=== PATIENT | male | born 1975 ===

== ENCOUNTER 2017-01-31 14:25 | Emergency (ER) | payer MEDICAID, OTHER ==
[2017-01-31 14:28] VITALS: O2SAT 99
[2017-01-31] MEDS ORDERED: Sodium Chloride 0.9% 1,000 ML IV STA ×2 (15:11→15:35)
--- NOTE | 2017-01-31 15:30 | ED PDOC ---
HPI: General Adult Time Seen by Provider: 01/31/17 14:52 Chief Complaint (Nursing): Male Genitourinary Chief Complaint (Provider): abd pain History Per: Patient History/Exam Limitations: no limitations Additional Complaint(s): 41 yo M in ED for eval of left flank pain radiating to back with some difficulty in urinating x 3-4days no nausea vomiting fever or chills. denies heamtuira dneies penile d.c with hx of STI. denies sick contacts. Past Medical History Reviewed: Historical Data, Nursing Documentation, Vital Signs Vital Signs: Last Vital Signs Temp 98 F 01/31/17 14:26 Pulse 92 H 01/31/17 14:26 Resp 20 01/31/17 14:26 BP 120/80 01/31/17 14:26 Pulse Ox 99 01/31/17 15:35 - Medical History PMH: HTN - Surgical History Surgical History: Appendectomy - Family History Family History: States: No Known Family Hx - Home Medications Home Medications: Ambulatory Orders Medication Instructions Recorded Ciprofloxacin [Cipro] 250 mg PO BID #14 tab 01/31/17 Ketorolac Tromethamine [Toradol] 10 mg PO TID #20 cap 01/31/17 Tamsulosin HCl [Flomax] 0.4 mg PO DAILY #12 cap.er.24h 01/31/17 - Allergies Allergies/Adverse Reactions: Allergies Allergy/AdvReac Type Severity Reaction Status Date / Time Penicillins Allergy Mild RASH Verified 01/31/17 14:26 Review of Systems ROS Statement: Except As Marked, All Systems Reviewed And Found Negative Gastrointestinal: Positive for: Abdominal Pain Physical Exam - Reviewed Nursing Documentation Reviewed: Yes Vital Signs Reviewed: Yes - Physical Exam Appears: Positive for: Well, Non-toxic, No Acute Distress Skin: Positive for: Normal Color, Warm, DRY Neck: Positive for: Normal, Painless ROM Cardiovascular/Chest: Positive for: Regular Rate, Rhythm Respiratory: Positive for: CNT, Normal Breath Sounds Gastrointestinal/Abdominal: Positive for: Bowel Sounds, Soft, Tenderness (left sided abd: tenderness to left sided abd and flank area. no bruising noted. ) Back: Positive for: Normal Inspection Extremity: Positive for: Normal ROM Neurologic/Psych: Positive for: Alert, Oriented - Laboratory Results Result Diagrams: 01/31/17 15:30 01/31/17 15:30 - ECG O2 Sat by Pulse Oximetry: 99 - Progress ED Course And Treament: pt will get CT scan to r/o renal stone. given torodol IV and NS fluids. Medical Decision Making Medical Decision Making: Pt with(+) renal calculi pt received NS and torodol for pain and hydration pt more comfortable now after fluids. Pt will be d.c with flomax, cipro, torodol for pain and advised to f.u with urologist. pt understands and agrees with plan. Disposition - Clinical Impression Clinical Impression: Renal stones - Patient ED Disposition Is Patient to be Admitted: No Counseled Patient/Family Regarding: Studies Performed, Diagnosis, Need For Followup, Rx Given - Disposition Referrals: Festus Bonilla Jr., MD [Staff Provider] - [facility] [Outside] Former[facility] [Outside] Disposition: Routine/Home Disposition Time: 16:24 Condition: IMPROVED Prescriptions: Ciprofloxacin [Cipro] 250 mg PO BID #14 tab Ketorolac Tromethamine [Toradol] 10 mg PO TID #20 cap Tamsulosin HCl [Flomax] 0.4 mg PO DAILY #12 cap.er.24h Instructions: Kidney Stones (GEN) Print Language: PALAUAN
[2017-01-31 15:50] LABS: BASO % 0.5 % (0.0-2.0); EOS # 0.1 K/uL (0.0-0.7); EOS % 0.9 % (0.0-4.0); LYMPH # 2.6 K/uL (1.0-4.3); LYMPH % 36.8 % (20.0-40.0); MEAN CELL VOLUME 92.1 fl (80.0-94.0); MEAN CORPUSCULAR HEMOGLOBIN 30.7 pg (27.0-31.0); MEAN CORPUSCULAR HGB CONC 33.3 g/dL (33.0-37.0); MEAN PLATELET VOLUME 10.2 fl (7.2-11.7); MONO # 0.6 K/uL (0.0-0.8); MONO % 8.5 % (0.0-10.0); NEUT # 3.7 K/uL (1.8-7.0); NEUT % 53.3 % (50.0-75.0); RED CELL DISTRIBUTION WIDTH 13.1 % (11.5-14.5)
[2017-01-31 15:54] LABS: ALB/GLOB RATIO 1.5 (1.0-2.1); ALKALINE PHOSPHATASE 73 U/L (38-126); ALT/SGPT 44 U/L (21-72); AST/SGOT 37 U/L (17-59); BLOOD UREA NITROGEN 21 mg/dl (9-20); CALCIUM 10.3 mg/dL (8.4-10.2); CARBON DIOXIDE 21 mmol/L (22-30); CHLORIDE 105 mmol/L (98-107); GFR AFRICAN-AMERICAN > 60; GLUCOSE,RANDOM 114 mg/dL (75-110); SODIUM 143 mmol/l (132-148); TOTAL PROTEIN 7.7 G/DL (6.3-8.2)
--- NOTE | 2017-01-31 16:16 | CT ---
PROCEDURE: CT Abdomen and Pelvis without Oral or IV contrast. HISTORY: left flank pain COMPARISON: None available. TECHNIQUE: Contiguous axial images of the abdomen and pelvis. No oral or IV contrast administered. Coronal and Sagittal reformats generated and reviewed. Radiation dose: Total exam DLP = 559.08 mGy-cm. This CT exam was performed using one or more of the following dose reduction techniques: Automated exposure control, adjustment of the mA and/or kV according to patient size, and/or use of iterative reconstruction technique. FINDINGS: There is limited evaluation of the solid organs without the administration of IV contrast. LOWER THORAX: No visible consolidation, pleural effusion, or pneumothorax. LIVER: Unremarkable unenhanced appearance. GALLBLADDER AND BILE DUCTS: Unremarkable unenhanced appearance. PANCREAS: Unremarkable unenhanced appearance. SPLEEN: Unremarkable unenhanced appearance. ADRENALS: Unremarkable unenhanced appearance. KIDNEYS AND URETERS: 3 mm calculus at the distal left ureter near the UVJ. Proximal hydroureter nephrosis. Additional 2 mm and 1 mm calculi within the left renal pelvis. No obstructing calculus or hydronephrosis on the right. BLADDER: The urinary bladder appears unremarkable. REPRODUCTIVE: Uterus is present. APPENDIX: The appendix is not identified. No secondary signs of acute appendicitis. BOWEL: The stomach is nondistended. Lack of oral contrast limits evaluation for bowel pathology. The bowel loops appear within normal limits of caliber without evidence of intestinal obstruction. PERITONEUM: No significant free fluid. No definite free air. LYMPH NODES: No bulky lymphadenopathy identified. VASCULATURE: No aortic aneurysm. BONES: No acute osseous abnormality is detected. OTHER FINDINGS: None. IMPRESSION: 3 mm calculus at the distal left ureter near the UVJ with proximal hydroureteronephrosis. Additional 2 mm and 1 mm calculi within the left renal pelvis. No obstructing calculus or hydronephrosis on the right.
[2017-01-31 17:30] VITALS: BP 126/68; PULSE 74; RESP 15; TEMP 98.8
== END 2017-01-31 17:47 | disposition home or self-care (01) ==
LOC: H.ER 14:25
DX: N13.2 Hydronephrosis with renal and ureteral calculous obstruction (principal)
CPT/HCPCS: 74176; 80053; 85025; 96374; 99283; J1885; J7040

== ENCOUNTER 2017-08-05 10:08 | Inpatient (IN) | payer MEDICAID, SELFPAY ==
--- NOTE | 2017-08-05 11:36 | ED PDOC ---
HPI:STROKE - Onset Date: 08/05/17 Onset: This morning - Notes: Notes:: Pt states he has been feeling nervous for the past 3 days, woke up this morning with numbness to both legs. Was at job interview @ 9 AM today when he his tongue started to feel twisted, blurry vision and felt weakness in his R arm. States he thinks he is having a panic attack. 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 Pt intermittently compliant with HTN meds and ASA. NIHSS Stroke Scale - Date/Time Evaluation Performed Date Performed: 08/05/17 Time Performed: 11:50 When Was NIHSS Performed: Code Stroke - How Severe is the Stroke Level of Consciousness: 0=Alert LOC to Questions: 0=Both comments correct LOC to commands: 0=Obeys both correctly Best Gaze: 0=Normal Visual: 0=No visual loss Facial: 0=Normal Motor Arm - Left: 0=No drift Motor Arm - Right: 3=No effort against gravity (falls immediately) Motor Leg - Left: 0=No drift Motor Leg - Right: 2=Falls before 5 sec Limb Ataxia: 0=Absent Sensory: 0=Normal Best Language: 0=No aphasia Dysarthia: 1=Mild to moderate slurring Extinction & Inattention (Neglect): 0=Normal, no object Score: 6 rTPA Inclusion/Exclusion - Refusal of Treatment Patient Refused Treatment: No - Inclusion Criteria for Altepase Patient is 18 years or Older: Yes The Clinical Diagnosis of Ischemic Stroke That is Causing a Potentially Disabling Neurological Deficit: Yes Time of Onset is Well Established to be Less Than 270 Minute Before Treatment Would Begin: No Risk/Benefit Discussed With Patient/Family Member Present: Yes - Warning to TPA With Conditions Following Conditions Weighed Against Anticipated Benefit: No Additional Condition (For 3-4.5 Hour Window): Prior Stroke and Diabetes Past Medical History Reviewed: Historical Data, Nursing Documentation, Vital Signs Vital Signs: Last Vital Signs Temp 97.9 F 08/05/17 10:27 Pulse 92 H 08/05/17 10:27 Resp 18 08/05/17 10:27 BP 129/90 08/05/17 10:27 Pulse Ox 97 08/05/17 10:27 - Medical History PMH: Anxiety, HTN - Surgical History Surgical History: Appendectomy - Family History Family History: States: Unknown Family Hx - Living Arrangements Living Arrangements: With Family - Social History Current smoker - smoking cessation education provided: No Alcohol: Occasional - Home Medications Home Medications: Ambulatory Orders Medication Instructions Recorded Aspirin [Ecotrin] 81 mg PO DAILY 08/05/17 Captopril 1 tab PO DAILY 08/05/17 Chlordiazepoxide 1 cap PO DAILY 08/05/17 Clonazepam 1 tab PO DAILY PRN 08/05/17 - Allergies Allergies/Adverse Reactions: Allergies Allergy/AdvReac Type Severity Reaction Status Date / Time Penicillins Allergy Mild RASH Verified 08/05/17 10:26 Review of Systems Constitutional: Negative for: Fever, Chills Eyes: Positive for: Vision Change Cardiovascular: Negative for: Chest Pain, Palpitations Respiratory: Negative for: Cough, Shortness of Breath Gastrointestinal: Negative for: Nausea, Vomiting, Abdominal Pain, Diarrhea Skin: Negative for: Rash, Lesions Neurological: Positive for: Weakness, Numbness, Change in Speech, Headache. Negative for: Incoordination, Confusion, Seizures, Altered Mental Status, Dizziness Physical Exam - Reviewed Nursing Documentation Reviewed: Yes Vital Signs Reviewed: Yes - Physical Exam Appears: Positive for: Well, No Acute Distress Head Exam: Positive for: ATRAUMATIC, NORMAL INSPECTION Skin: Positive for: Normal Color, Warm, Dry Eye Exam: Positive for: Normal appearance, EOMI, PERRL Neck: Positive for: Normal, Painless ROM, Supple Cardiovascular/Chest: Positive for: Regular Rate, Rhythm Respiratory: Positive for: Normal Breath Sounds Gastrointestinal/Abdominal: Positive for: Normal Exam Extremity: Positive for: Normal ROM Neurologic/Psych: Positive for: Alert, shoe dresser II-XII, Oriented, Motor/Sensory Deficits. Negative for: Aphasia, Facial Droop - Laboratory Results Result Diagrams: 08/05/17 12:00 08/05/17 12:00 - ECG ECG: Positive for: Viewed By Me ECG Rhythm: Positive for: Sinus Rhythm (Normal) Rate: 73 O2 Sat by Pulse Oximetry: 97 (RA) Pulse Ox Interpretation: Normal - Core Measure Core Measure Indicators: Code Stroke - Critical Care Total Time (In Min): 90 Medical Decision Making Medical Decision Making: Time: 11:34 Plan: - Type and Screen - CT Head (CODE STROKE) - EKG - CMP - Hemoglobin A1C Stat - Lipid Panel Stat - Troponin I Stat - Stroke Team Consult - CBC - Partial Thromboplastin Time - Prothrombin Time - Portable Chest X-Ray - Sodium Chloride 0.9% 1,000 ml IV 100 mls/hr - Call Stroke Team Consult 11:[address] Cabrera 11:49 Discussed with radiologist. (-) CT report 11:49 CT HEAD w/o Contrast FINDINGS: HEMORRHAGE: No intracranial hemorrhage. BRAIN: No mass effect or edema. No atrophy or chronic microvascular ischemic changes. VENTRICLES: Unremarkable. No hydrocephalus. CALVARIUM: Unremarkable. PARANASAL SINUSES: Unremarkable as visualized. No significant inflammatory changes. MASTOID AIR CELLS: Unremarkable as visualized. No inflammatory changes. OTHER FINDINGS: None. IMPRESSION: No acute intracranial pathology. Findings conveyed to Dr. Whipple by Dr. Cuellar at 11:49 a.m. on 08/05/2017. 12:[address] Cabrera after evaluation, recommends Plavix 300 mg, ASA 81 mg, 1 L NS then 100 cc/hr, CTA head/neck. Accession No. : [id number] Patient Name / ID : LISA DURAN / [id number] Exam Date : 08/05/2017 12:18:42 ( Approved ) Study Comment : Sex / Age : M / 42Y Creator : Galindo Austin MD Dictator : Galindo Austin MD [facility] Manager : Stone Decorator : Galindo Austin MD Approver2 : Report Date : 08/05/2017 13:03:24 My Comment : PROCEDURE: CT Angiography of the Brain. HISTORY: R sided weakness COMPARISON: None available. TECHNIQUE: CT angiography of the intracranial and cervical arteries was performed. Coronal and sagittal maximum intensity projection reformatted images were generated. Contrast Dose: Visipaque 320, 100 cc Radiation dose:Total exam DLP = 659.00 mGy-cm. This CT exam was performed using one or more of the following dose reduction techniques: Automated exposure control, adjustment of the mA and/or kV according to patient size, and/or use of iterative reconstruction technique. This CT exam was performed using one or more of the following dose reduction techniques: Automated exposure control, adjustment of the mA and/or kV according to patient size, and/or use of iterative reconstruction technique. FINDINGS: INTERNAL CEREBRAL ARTERIES: Unremarkable. The skull base, petrous, cavernous and supraclinoid segments are bilaterally widely patent. ANTERIOR CEREBRAL ARTERIES: Unremarkable. A1 and A2 segments are widely patent. Smaller distal branches unremarkable, as visualized. MIDDLE CEREBRAL ARTERIES: Unremarkable. M1 and M2 segments are widely patent. Perisylvian branches grossly symmetric. POSTERIOR CIRCULATION: Basilar Artery: Unremarkable. Distal Vertebral Arteries: Unremarkable. Posterior Cerebral Arteries: Unremarkable. Posterior Inferior Cerebellar Arteries: Unremarkable. NECK CTA: Common Carotid arteries: The bilateral common carotid appear widely patent from their origins to their bifurcations with no significant stenosis appreciated. No evidence to suggest common carotid artery dissection. Internal Carotid arteries: No significant stenosis is appreciated throughout the cervical internal carotid artery segments bilaterally and there is no evidence of dissection either. External Carotid arteries: Appear unremarkable bilaterally. Vertebral arteries: The bilateral vertebral arteries appear normal in caliber from their origins to their junction with the basilar artery. No significant stenosis or definite pattern of dissection. ANEURYSM/ VASCULAR MALFORMATIONS: No aneurysm or arteriovascular malformation is identified. 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 OTHER FINDINGS: None. IMPRESSION: Unremarkable CT Angiography of the Brain and Neck. 13:05 Dr. Cabrera reviewed CTA, admit for stroke workup. Scribe Attestation: Documented by Rick Daniel, acting as a scribe for Nancy Whipple MD Provider Scribe Attestation: All medical record entries made by the Scribe were at my direction and personally dictated by me. I have reviewed the chart and agree that the record accurately reflects my personal performance of the history, physical exam, medical decision making, and the department course for this patient. I have also personally directed, reviewed, and agree with the discharge instructions and disposition. Disposition - Clinical Impression Clinical Impression: CVA (cerebral vascular accident) - Patient ED Disposition Is Patient to be Admitted: Yes - Disposition Disposition Time: 14:00 Condition: GUARDED - Pt Status Changed To: Hospital Disposition Of: Inpatient - Admit Certification Admit to Inpatient:: After my assessment, the patient will require hospitalization for at least two midnights. This is because of the severity of symptoms shown, intensity of services needed, and/or the medical risk in this patient being treated as an outpatient. - POA Present On Arrival: None
[2017-08-05 11:42] VITALS: BMI 25.5
--- NOTE | 2017-08-05 11:51 | CT ---
PROCEDURE: CT HEAD WITHOUT CONTRAST. HISTORY: code stroke COMPARISON: None available. TECHNIQUE: Axial computed tomography images were obtained through the head/brain without intravenous contrast. Radiation dose: Total exam DLP = 969.4 mGy-cm. This CT exam was performed using one or more of the following dose reduction techniques: Automated exposure control, adjustment of the mA and/or kV according to patient size, and/or use of iterative reconstruction technique. FINDINGS: HEMORRHAGE: No intracranial hemorrhage. BRAIN: No mass effect or edema. No atrophy or chronic microvascular ischemic changes. VENTRICLES: Unremarkable. No hydrocephalus. CALVARIUM: Unremarkable. PARANASAL SINUSES: Unremarkable as visualized. No significant inflammatory changes. MASTOID AIR CELLS: Unremarkable as visualized. No inflammatory changes. OTHER FINDINGS: None. IMPRESSION: No acute intracranial pathology. Findings conveyed to Dr. Whipple by Dr. Cuellar at 11:49 a.m. on 08/05/2017.
[2017-08-05] MEDS ORDERED: Sodium Chloride 0.9% 1,000 ML IV STA ×2 (12:10→15:15)
[2017-08-05 12:11] LABS: BASO # 0.1 K/uL (0.0-0.2); BASO % 0.6 % (0.0-2.0); EOS # 0.1 K/uL (0.0-0.7); EOS % 0.7 % (0.0-4.0); HEMOGLOBIN 15.8 g/dL (12.0-18.0); LYMPH # 2.4 K/uL (1.0-4.3); LYMPH % 28.2 % (20.0-40.0); MEAN CORPUSCULAR HEMOGLOBIN 31.7 pg (27.0-31.0); MEAN CORPUSCULAR HGB CONC 34.5 g/dL (33.0-37.0); MEAN PLATELET VOLUME 9.5 fl (7.2-11.7); MONO # 0.6 K/uL (0.0-0.8); MONO % 7.6 % (0.0-10.0); NEUT # 5.3 K/uL (1.8-7.0); NEUT % 62.9 % (50.0-75.0); RBC 4.99 Mil/uL (4.40-5.90); RED CELL DISTRIBUTION WIDTH 12.9 % (11.5-14.5); WHITE BLOOD COUNT 8.4 K/uL (4.8-10.8)
[2017-08-05] MEDS ORDERED: Iodixanol 320 MG/ML 100 ML BOTTLE IV ONE (12:14)
[2017-08-05 12:23] LABS: ALB/GLOB RATIO 1.3 (1.0-2.1); ALBUMIN 4.1 g/dL (3.5-5.0); ALT/SGPT 41 U/L (21-72); AST/SGOT 27 U/L (17-59); BLOOD UREA NITROGEN 16 mg/dl (9-20); CALCIUM 9.5 mg/dL (8.4-10.2); GFR AFRICAN-AMERICAN > 60; GFR NON-AFRICAN AMERICAN > 60; HDL CHOLESTEROL 46 MG/DL (30-70)
[2017-08-05 12:24] LABS: INR 1.1 (0.9-1.2); PROTHROMBIN TIME 11.7 Seconds (9.8-13.1)
--- NOTE | 2017-08-05 12:26 | RAD ---
HISTORY: Code Stroke COMPARISON: No prior. FINDINGS: LUNGS: No active pulmonary disease. PLEURA: No significant pleural effusion identified, no pneumothorax apparent. CARDIOVASCULAR: Normal. OSSEOUS STRUCTURES: No significant abnormalities. VISUALIZED UPPER ABDOMEN: Normal. OTHER FINDINGS: None. IMPRESSION: No acute cardiopulmonary disease appreciated.
--- NOTE | 2017-08-05 12:30 | CP.PCM.CON ---
History of Present Illness - History of Present Illness History of Present Illness: Tele-Stroke Consult Note: This is a tele-health visit and the patient is being seen through bi-directional video conference with the [employer] system. Mr. Medrano is a 42-year-old man with a past medical history of a stroke about one year ago that had resulted in right arm weakness, with improvement, who presented to the ED this morning with complaints of right arm/leg weakness. He states that he woke up this morning and felt some right leg numbness. When he went to be last night, he felt normal. 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 After that he felt right side numbness and weakness (at around 9:15 AM). He presented to the ED and a CT scan of the head was done. There were no acute findings on the CT head. His NIHSS was a 6. He was not a good candidate for IV tPA since he was outside the 3 hour time window. Review of Systems - Review of Systems All systems: reviewed and no additional remarkable complaints except Past Patient History - Past Social History Smoking Status: Never Smoked - CARDIAC Hx Hypertension: Yes - NEUROLOGICAL HX Cerebrovascular Accident: Yes (RESIDUAL RT ARM WEAKNESS) - PSYCHIATRIC Hx Anxiety: Yes - SURGICAL HISTORY Hx Appendectomy: Yes - ANESTHESIA Hx Anesthesia: Yes Hx Anesthesia Reactions: No Meds Allergies/Adverse Reactions: Allergies Allergy/AdvReac Type Severity Reaction Status Date / Time Penicillins Allergy Mild RASH Verified 08/05/17 10:26 - Medications Medications: Current Medications Sodium Chloride (Sodium Chloride 0.9%) 1,000 mls @ 100 mls/hr IV .Q10H ZEE Sodium Chloride (Sodium Chloride 0.9%) 1,000 mls @ 1,000 mls/hr IV .Q1H STA Stop: 08/05/17 13:09 Physical Exam - Neurological Exam Neurological exam: Abnormal Gait, Alert, CN II-XII Intact, Oriented x3 Additional comments: Left side was normal in strength and sensation. Right arm was antigravity, but could not be sustained, right leg was antigravity and could not be sustained, he had dysarthria and right side numbness. Visual weinstein were intact. NIHSS =6 Results - Vital Signs Recent Vital Signs: Last Vital Signs Temp 97.9 F 08/05/17 10:27 Pulse 73 08/05/17 12:16 Resp 20 08/05/17 12:03 BP 128/96 H 08/05/17 12:03 Pulse Ox 97 08/05/17 12:16 - Labs Result Diagrams: 08/05/17 12:00 Labs: Laboratory Results - last 24 hr 08/05/17 08/05/17 12:00 12:00 WBC 8.4 RBC 4.99 Hgb 15.8 Hct 45.9 MCV 92.0 MCH 31.7 H MCHC 34.5 RDW 12.9 Plt Count 207 MPV 9.5 Neut % (Auto) 62.9 Lymph % (Auto) 28.2 [place] % (Auto) 7.6 Eos % (Auto) 0.7 Baso % (Auto) 0.6 Neut # (Auto) 5.3 Lymph # (Auto) 2.4 [place] # (Auto) 0.6 Eos # (Auto) 0.1 Baso # (Auto) 0.1 BBK History Checked No verified bt Assessment & Plan (1) Acute ischemic stroke Assessment and Plan: He is not a good candidate for IV tPA due to being outside the time window. I recommend the followin. STAT CTA of the head/neck 2. Load with Plavix 300 mg and Aspirin 81 mg now and continue Plavix 75 mg daily along with Aspirin 81 mg daily for 21 days, after that continue Plavix 75 mg monotherapy 3. Telemetry and Q2 hour neuro-checks 4. Permissive HTN (only treat BP > 220/110 mm Hg) 5. Echocardiogram with bubble study 6. PT/OT eval/treatment 7. Lipid panel, HbA1c, B12, folate, vitamin D levels, TSH 8. Give Lipitor 40 mg daily 9. DVT Px with SCD 10. Case management consult Thank you. Status: Acute Priority: High
[2017-08-05 12:34] LABS: LDL CHOLESTEROL 121 mg/dL (0-129)
[2017-08-05] MEDS: Sodium Chloride 0.9% 1,000 ML IV SCH ×2 (12:41→21:45)
--- NOTE | 2017-08-05 13:05 | CT ---
PROCEDURE: CT Angiography of the Brain. HISTORY: R sided weakness COMPARISON: None available. TECHNIQUE: CT angiography of the intracranial and cervical arteries was performed. Coronal and sagittal maximum intensity projection reformatted images were generated. Contrast Dose: Visipaque 320, 100 cc Radiation dose:Total exam DLP = 659.00 mGy-cm. This CT exam was performed using one or more of the following dose reduction techniques: Automated exposure control, adjustment of the mA and/or kV according to patient size, and/or use of iterative reconstruction technique. This CT exam was performed using one or more of the following dose reduction techniques: Automated exposure control, adjustment of the mA and/or kV according to patient size, and/or use of iterative reconstruction technique. FINDINGS: INTERNAL CEREBRAL ARTERIES: Unremarkable. The skull base, petrous, cavernous and supraclinoid segments are bilaterally widely patent. ANTERIOR CEREBRAL ARTERIES: Unremarkable. A1 and A2 segments are widely patent. Smaller distal branches unremarkable, as visualized. MIDDLE CEREBRAL ARTERIES: Unremarkable. M1 and M2 segments are widely patent. Perisylvian branches grossly symmetric. POSTERIOR CIRCULATION: Basilar Artery: Unremarkable. Distal Vertebral Arteries: Unremarkable. Posterior Cerebral Arteries: Unremarkable. Posterior Inferior Cerebellar Arteries: Unremarkable. NECK CTA: Common Carotid arteries: The bilateral common carotid appear widely patent from their origins to their bifurcations with no significant stenosis appreciated. No evidence to suggest common carotid artery dissection. Internal Carotid arteries: No significant stenosis is appreciated throughout the cervical internal carotid artery segments bilaterally and there is no evidence of dissection either. External Carotid arteries: Appear unremarkable bilaterally. Vertebral arteries: The bilateral vertebral arteries appear normal in caliber from their origins to their junction with the basilar artery. No significant stenosis or definite pattern of dissection. ANEURYSM/ VASCULAR MALFORMATIONS: No aneurysm or arteriovascular malformation is identified. 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 OTHER FINDINGS: None. IMPRESSION: Unremarkable CT Angiography of the Brain and Neck.
--- NOTE | 2017-08-05 16:06 | CP.PCM.HP ---
History of Present Illness - History of Present Illness History of Present Illness: 42 y/o male who reports pmhx of stroke a year ago (right sided weakness which has been improving), HTN and HLD for which he reports he takes his medication he gets from [place] but does not take regularly. Does not have a primary care provider. Pt reports for the past couple of days he has been taking his medication for HTN and also aspirin because he has not been feeling well, but then this morning when he woke up, he felt weak but did not want to make it a big deal because he has an interview to go to, after the interview he started to feel much worse, nausea, nervous , dizziness so decided to come to the ED. The right sided weakness and numbness has been present the entire time, the feeling of nervousness has since resolved but numbness and weakness still present. No other complaints otherwise PMD- None PMHX- CVA (2016), HTN, HLD PSHx- Appendectomy Allergies- Pencillins SocialHx- social alcohol use ED work up CODE STROKE Initiated Stroke team consulted Neurology evaluated pt via telemedicine- NIHSS score of 6, but due to time of presentation to ED, Pt was not candidate for tPA plavix 300mg and aspirin given lipid panel and hemoglobin A1C ordered CTA head and neck ordered -negative Present on Admission - Present on Admission Any Indicators Present on Admission: No Review of Systems - Review of Systems All systems: reviewed and no additional remarkable complaints except Review of Systems: see HPI for details Past Patient History - Past Social History Alcohol: Occasional - CARDIAC Hx Hypertension: Yes - NEUROLOGICAL HX Cerebrovascular Accident: Yes (RESIDUAL RT ARM WEAKNESS) - PSYCHIATRIC Hx Anxiety: Yes - SURGICAL HISTORY Hx Appendectomy: Yes - ANESTHESIA Hx Anesthesia: Yes Hx Anesthesia Reactions: No Meds Allergies/Adverse Reactions: Allergies Allergy/AdvReac Type Severity Reaction Status Date / Time Penicillins Allergy Mild RASH Verified 08/05/17 10:26 Physical Exam - Constitutional Appears: Non-toxic, No Acute Distress - Head Exam Head Exam: NORMOCEPHALIC - Eye Exam Eye Exam: Normal appearance - Respiratory Exam Respiratory Exam: Clear to Auscultation Bilateral, NORMAL BREATHING PATTERN. absent: Rhonchi, Wheezes - Cardiovascular Exam Cardiovascular Exam: REGULAR RHYTHM, +S1, +S2 - GI/Abdominal Exam GI & Abdominal Exam: Normal Bowel Sounds, Soft. absent: Tenderness - Extremities Exam Extremities exam: Negative for: calf tenderness, joint swelling, pedal edema - Neurological Exam Neurological exam: Abnormal Gait, Alert, Motor Sensory Deficit, Oriented x3 Additional comments: left stronger than right hand in griping cannot fully raise right leg compared to left leg - Psychiatric Exam Psychiatric exam: Anxious - Skin Skin Exam: Dry Results - Vital Signs Recent Vital Signs: Last Vital Signs Temp 97.9 F 08/05/17 10:27 Pulse 67 08/05/17 16:03 Resp 18 08/05/17 16:03 BP 117/77 08/05/17 16:03 Pulse Ox 94 L 08/05/17 16:03 - Labs Result Diagrams: 08/05/17 12:00 08/05/17 12:00 Labs: Laboratory Results - last 24 hr 08/05/17 08/05/17 08/05/17 12:00 12:00 12:00 WBC 8.4 RBC 4.99 Hgb 15.8 Hct 45.9 MCV 92.0 MCH 31.7 H MCHC 34.5 RDW 12.9 Plt Count 207 MPV 9.5 Neut % (Auto) 62.9 Lymph % (Auto) 28.2 Pierce % (Auto) 7.6 Eos % (Auto) 0.7 Baso % (Auto) 0.6 Neut # (Auto) 5.3 Lymph # (Auto) 2.4 Pierce # (Auto) 0.6 Eos # (Auto) 0.1 Baso # (Auto) 0.1 PT 11.7 INR 1.1 APTT 34.0 Sodium 143 Potassium 4.2 Chloride 103 Carbon Dioxide 27 Anion Gap 17 BUN 16 Creatinine 0.9 Est GFR ( Amer) > 60 Est GFR (Non-Af Amer) > 60 Random Glucose 96 Calcium 9.5 Total Bilirubin 0.7 AST 27 ALT 41 Alkaline Phosphatase 73 Troponin I < 0.0120 Total Protein 7.3 Albumin 4.1 Globulin 3.2 Albumin/Globulin Ratio 1.3 Triglycerides 85 Cholesterol 193 LDL Cholesterol Direct 121 HDL Cholesterol 46 Blood Type Blood Type Confirm Antibody Screen BBK History Checked 08/05/17 08/05/17 12:00 12:10 WBC RBC Hgb Hct MCV MCH MCHC RDW Plt Count MPV Neut % (Auto) Lymph % (Auto) Pierce % (Auto) Eos % (Auto) Baso % (Auto) Neut # (Auto) Lymph # (Auto) Pierce # (Auto) Eos # (Auto) Baso # (Auto) PT INR APTT Sodium Potassium Chloride Carbon Dioxide Anion Gap BUN Creatinine Est GFR ( Amer) Est GFR (Non-Af Amer) Random Glucose Calcium Total Bilirubin AST ALT Alkaline Phosphatase Troponin I Total Protein Albumin Globulin Albumin/Globulin Ratio Triglycerides Cholesterol LDL Cholesterol Direct HDL Cholesterol Blood Type O POSITIVE Blood Type Confirm O POSITIVE Antibody Screen Negative BBK History Checked No verified bt Assessment & Plan - Assessment and Plan (Free Text) Assessment: 42 y/o male with self report of previous CVA in 2017 and History of HTN being admitted for CVA. Plan: A. CVA code stroke called by ED head CT -negative NIHSS 6 Neuro evaluated pt recommend the following 1. Head/ Neck CTA- negative 2. load of plavix 300mg and aspirin 81, given in ED- neuro recommends aspirin and Plavix combo for 21days then Plavix monotherapy 3. Neuro check Q2hrs 4. Permissive HTN only treat if BP >220/110 5.Echo with bubble study - done, f/u results 6. PT/OT eval and treat ordered 7. lipid panel, Hemoglobin A1C, B12, folate, TSH and Vitamin D levels ordered f/ u results 8. Lipitor 40mg daily ordered 9. DVT PX per neuro- SCDs B. Hx of hypertension (currently normotensive) pt reports taking catapril but does not know dose Per neurologist permit hypertension to BP 220/110 will monitor BP will not start any medication at this time C. Diet- hearty healthy D. DVT prophylaxis- SCDs per neuro
--- NOTE | 2017-08-05 20:07 | CARD ---
APPROVED REPORT EXAM: Two-dimensional and M-mode echocardiogram with Doppler and color Doppler. Other Information Quality : GoodRhythm : NSR INDICATION CVA/TIA Code Stroke Echo Enhancing Agent Indication: Rule Out Septal Defect Agent/Amount Used: Agitated Saline 2D DIMENSIONS IVSd0.96 (0.7-1.1cm)LVDd4.32 (3.9-5.9cm) LVOT Diameter2.11 (1.8-2.4cm)PWd0.98 (0.7-1.1cm) IVSs1.32 (0.8-1.2cm)LVDs3.22 (2.5-4.0cm) FS (%) 25.6 %PWs1.31 (0.8-1.2cm) LVEF (%)55.0 (>50%) M-Mode DIMENSIONS Left Atrium (MM)4.32 (2.5-4.0cm)IVSd1.29 (0.7-1.1cm) Aortic Root3.14 (2.2-3.7cm)LVDd4.94 (4.0-5.6cm) Aortic Cusp Exc.2.39 (1.5-2.0cm)PWd0.82 (0.7-1.1cm) IVSs1.60 cmFS (%) 37 % LVDs3.11 (2.0-3.8cm)PWs1.42 cm Mitral Valve MV E Fkcfptvw12.6cm/sMV DECEL [id number] A Nqoyndlj24.0cm/s MV NSY75nbP/A ratio1.7MVA (PHT)2.98cm2 TDI Lateral E' Peak V13.36cm/sMedial E' Peak V9.53cm/sE/Lateral E'4.4 E/Medial E'6.1 Pulmonary Valve PV Peak Bqpszlpt60.2cm/s LEFT VENTRICLE The left ventricle is normal size. There is normal left ventricular wall thickness. The left ventricular function is normal. The left ventricular ejection fraction is within the normal range. There is normal LV segmental wall motion. The left ventricular diastolic function is normal. RIGHT VENTRICLE The right ventricle is normal size. There is normal right ventricular wall thickness. The right ventricular systolic function is normal. ATRIA The left atrium size is normal. The right atrium size is normal. Can not rule out ASD, Consider DEBRA AORTIC VALVE The aortic valve is normal in structure. No aortic regurgitation is present. There is no aortic valvular stenosis. MITRAL VALVE The mitral valve is normal in structure. There is no mitral valve stenosis. There is no mitral valve regurgitation noted. TRICUSPID VALVE The tricuspid valve is normal in structure. There is no tricuspid valve regurgitation noted. PULMONIC VALVE The pulmonary valve is normal in structure. There is no pulmonic valvular regurgitation. GREAT VESSELS The aortic root is normal in size. The IVC is normal in size and collapses >50% with inspiration. PERICARDIAL EFFUSION The pericardium appears normal. <Conclusion> The left ventricle is normal size. There is normal left ventricular wall thickness. The left ventricular function is normal. The left ventricular ejection fraction is within the normal range. There is normal LV segmental wall motion. The left ventricular diastolic function is normal. Can not rule out ASD or a muscular VSD, Consider DEBRA
--- NOTE | 2017-08-05 20:53 | CARD ---
APPROVED REPORT EKG Measurement Heart [id number] OH [id number] <Conclusion> Normal sinus rhythm Normal ECG
[2017-08-05 22:07] LABS: FOLATE 10.1 ng/mL
[2017-08-06] MEDS: Sodium Chloride 0.9% 1,000 ML IV SCH (08:51)
--- NOTE | 2017-08-06 09:37 | CP.PCM.PN ---
Subjective - Date & Time of Evaluation Date of Evaluation: 08/06/17 Time of Evaluation: 08:34 - Subjective Subjective: 42M with PMHx of stroke one year ago with R sided weakness (improving), HTN, HLD seen at bedside one day after suffereing a stroke with NIHSS of 6. Patient is AAO x 3 and NAD, resting comfortably in bed at time of visit. Denies any acute overnight events. States that he feels greatly improved over yesterday. Denies any continued tingling and numbness to his right side and says that he feels his strength is improved over yesterday. Denies any further complaints at this time. Denies recent N/V/F/C/CP/SOB/D/posterior calf pain when squeezed. Objective - Vital Signs/Intake and Output Vital Signs (last 24 hours): Temp Pulse Resp BP Pulse Ox 97.6 F 67 18 112/72 95 08/06/17 07:57 08/06/17 07:57 08/06/17 07:57 08/06/17 07:57 08/06/17 07:57 - Medications Medications: Current Medications Aspirin (Aspirin Chewable) 81 mg PO DAILY [facility] Last Admin: 08/06/17 08:51 Dose: 81 mg Atorvastatin Calcium (Lipitor) 40 mg PO DAILY [facility] Last Admin: 08/06/17 08:51 Dose: 40 mg Clopidogrel Bisulfate (Plavix) 75 mg PO DAILY [facility] Last Admin: 08/06/17 08:51 Dose: 75 mg Sodium Chloride (Sodium Chloride 0.9%) 1,000 mls @ 100 mls/hr IV .Q10H [facility] Last Admin: 08/06/17 08:51 Dose: 100 mls/hr - Labs Labs: 08/05/17 12:00 08/05/17 12:00 PT 11.7 Seconds (9.8-13.1) 08/05/17 12:00 INR 1.1 (0.9-1.2) 08/05/17 12:00 APTT 34.0 Seconds (25.6-37.1) 08/05/17 12:00 - Constitutional Appears: Well, Non-toxic, No Acute Distress - Head Exam Head Exam: ATRAUMATIC, NORMOCEPHALIC - Eye Exam Eye Exam: EOMI, PERRL Pupil Exam: PERRL - ENT Exam ENT Exam: Mucous Membranes Moist - Neck Exam Neck Exam: Full ROM - Respiratory Exam Respiratory Exam: NORMAL BREATHING PATTERN - GI/Abdominal Exam GI & Abdominal Exam: absent: Distended, Firm, Guarding, Rigid, Tenderness - Rectal Exam Rectal Exam: Deferred - Extremities Exam Additional comments: Manual muscle strength of right side near equal to left side on both arm and leg. No facial droop or muscular deficiencies appreciated. Full ROM of right arm and leg appreciated - Neurological Exam Neurological Exam: Alert, Awake, Oriented x3 Neuro motor strength exam: Left Upper Extremity: 5, Right Upper Extremity: 4, Left Lower Extremity: 5, Right Lower Extremity: 4 - Psychiatric Exam Psychiatric exam: Normal Affect, Normal Mood - Skin Skin Exam: Intact, Normal Color, Warm Assessment and Plan - Assessment and Plan (Free Text) Assessment: 42M with PMHx of stroke one year ago with R sided weakness (improving), HTN, HLD seen at bedside one day after suffereing a stroke with NIHSS of 6 Plan: CVA - Per neurology (Dr. Cabrera), Plavix 75 mg PO daily and Aspirin 81 mg PO daily x 21 days (Day 2), then Plavix monotherapy - Lipitor 40 mg PO daily - Lipid panel WNL - HgA1c 5.5 - B12 WNL - Folate WNL - TSH WNL - Vitamin D deficiency: 19.2 - Head CT -negative - Head/ Neck CTA- negative - Bubble study: Can not r/o ASD or muscular VSD. Consider DEBRA - Neuro checks q2h - PT/OT eval and treat ordered - Cardiology Consult: Dr. Bateman - DEBRA ordered per Echocardiogram report recommendations - F/U HIV screen Hx of hypertension (currently normotensive) - Normotensive: BP 112/72 - Per neurologist permit hypertension to BP 220/110 -Pt reports taking catapril at home but does not know dose - Continue to monitor BP and treat accordingly, no medication at this time Diet - Hearty healthy DVT prophylaxis - SCDs per Neuro
--- NOTE | 2017-08-06 10:37 | CP.PCM.PN ---
Subjective - Date & Time of Evaluation Date of Evaluation: 08/06/17 Time of Evaluation: 10:35 - Subjective Subjective: Mr. Medrano was seen and examined at the bedside. 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 He denies any headache, dizziness, lightheadedness, blurred vision, diplopia, nausea, or vomiting. He is able to follow simple commands with right side slightly weaker than the left. CTA of head and neck is unremarkable, Echocardiogram showed normal LV function and EF, but unable to determine the presence of ASD or VSD. There was no untoward events overnight. Objective - Vital Signs/Intake and Output Vital Signs (last 24 hours): Temp Pulse Resp BP Pulse Ox 97.6 F 72 18 112/72 95 08/06/17 07:57 08/06/17 09:50 08/06/17 07:57 08/06/17 07:57 08/06/17 09:50 - Medications Medications: Current Medications Aspirin (Aspirin Chewable) 81 mg PO DAILY [facility] Last Admin: 08/06/17 08:51 Dose: 81 mg Atorvastatin Calcium (Lipitor) 40 mg PO DAILY [facility] Last Admin: 08/06/17 08:51 Dose: 40 mg Clopidogrel Bisulfate (Plavix) 75 mg PO DAILY [facility] Last Admin: 08/06/17 08:51 Dose: 75 mg Sodium Chloride (Sodium Chloride 0.9%) 1,000 mls @ 100 mls/hr IV .Q10H [facility] Last Admin: 08/06/17 08:51 Dose: 100 mls/hr - Labs Labs: 08/05/17 12:00 08/05/17 12:00 PT 11.7 Seconds (9.8-13.1) 08/05/17 12:00 INR 1.1 (0.9-1.2) 08/05/17 12:00 APTT 34.0 Seconds (25.6-37.1) 08/05/17 12:00 - Constitutional Appears: No Acute Distress - Head Exam Head Exam: NORMAL INSPECTION - Eye Exam Pupil Exam: PERRL - Neurological Exam Neurological Exam: Alert, Awake, Oriented x3 Neuro motor strength exam: Left Upper Extremity: 5, Right Upper Extremity: 4, Left Lower Extremity: 5, Right Lower Extremity: 4 Additional comments: He is alert, oriented with right side with mild weakness in comparison to his left side. Sensation is intact. Assessment and Plan (1) CVA (cerebral vascular accident) Assessment & Plan: Case discussed with Dr. Cabrera, continue all current medical, physical, occupational, and speech therapies. Pending MRI, MRA of the head and MRA of the neck. Recommend cardiology consult for possible DEBRA to evaluate the presence of ASD or VSD. Status: Acute
--- NOTE | 2017-08-06 22:00 | CON ---
DATE: REASON FOR CONSULTATION: To evaluate the patient for DEBRA. HISTORY OF PRESENT ILLNESS: The patient is a 42-year-old male who has a history of hypertension, he sustained stroke last year in [place] with right-sided weakness at that time with near full recovery. The patient presented because of right arm numbness and bilateral leg weakness. The patient denies any speech difficulty. SOCIAL HISTORY: The patient is a nonsmoker and he is . He is still looking for a job. MEDICATIONS: Aspirin 81 mg twice a day, Lipitor 40 mg once a day, and Plavix 75 mg once a day. PHYSICAL EXAMINATION: GENERAL: The patient is a middle-age male who does not appear to be in any distress. VITAL SIGNS: Blood pressure 115/75, heart rate 63, temperature 98.9, and respirations 20. HEENT: Normocephalic. CHEST: Clear. HEART: S1 and S2 regular. ABDOMEN: Soft. EXTREMITIES: No edema. LABORATORY DATA: SMA-7 is within normal limit. One set of troponin is negative. TSH level is with normal limit. Hemoglobin, hematocrit, white count, and platelet count are within normal limits. PT, PTT and INR are within normal limits. Head and neck CT angio as well as head CT scan were unremarkable. EKG revealed normal sinus rhythm. Transthoracic echo could not conclusively rule out any atrial septal defect because of the poor images. ASSESSMENT: 1. Recurrent cerebrovascular accident. 2. Rule out patent foramen ovale. 3. Hypertension and hyperlipidemia. RECOMMENDATIONS: Continue current aspirin, Lipitor, and Plavix . The patient will be kept n.p.o. after midnight and will be transferred tomorrow to [facility] for transesophageal echocardiographic study. The procedure and its risks also explained to the patient via coffee maker. Maurice Bateman MD
[2017-08-07] MEDS ORDERED: Sodium Chloride 0.9% 1,000 ML IV SCH (10:00)
--- NOTE | 2017-08-07 10:03 | CP.PCM.PN ---
Subjective - Date & Time of Evaluation Date of Evaluation: 08/07/17 Time of Evaluation: 10:00 - Subjective Subjective: 42M with PMHx of stroke one year ago with R sided weakness (improving), HTN, HLD seen at bedside two days after suffereing a stroke with NIHSS of 6. Patient is AAO x 3 and NAD, resting comfortably in bed at time of visit. Denies any acute overnight events. States that his right sided weakness feels completely resolved at this time. Denies any continued tingling and numbness to his right side. Denies any further complaints at this time. Denies recent N/V/F/C/CP/SOB/D /posterior calf pain when squeezed. Patient is aware that he will be transferred to [facility] today for DEBRA. Patient states that he has been NPO since before midnight last night and is aware that he must remain NPO until after his DEBRA is complete Objective - Vital Signs/Intake and Output Vital Signs (last 24 hours): Temp Pulse Resp BP Pulse Ox 97.5 F L 63 18 108/72 100 08/07/17 08:00 08/07/17 09:00 08/07/17 08:00 08/07/17 08:00 08/07/17 08:00 - Medications Medications: Current Medications Aspirin (Aspirin Chewable) 81 mg PO DAILY [facility] Last Admin: 08/06/17 08:51 Dose: 81 mg Atorvastatin Calcium (Lipitor) 40 mg PO DAILY [facility] Last Admin: 08/06/17 08:51 Dose: 40 mg Clopidogrel Bisulfate (Plavix) 75 mg PO DAILY [facility] Last Admin: 08/06/17 08:51 Dose: 75 mg Sodium Chloride (Sodium Chloride 0.9%) 1,000 mls @ 75 mls/hr IV .[id number] [facility] Stop: 08/08/17 09:59 - Labs Labs: 08/05/17 12:00 08/05/17 12:00 PT 11.7 Seconds (9.8-13.1) 08/05/17 12:00 INR 1.1 (0.9-1.2) 08/05/17 12:00 APTT 34.0 Seconds (25.6-37.1) 08/05/17 12:00 - Constitutional Appears: Well, Non-toxic, No Acute Distress - Head Exam Head Exam: ATRAUMATIC, NORMOCEPHALIC - Eye Exam Eye Exam: EOMI, PERRL Pupil Exam: PERRL - ENT Exam ENT Exam: Mucous Membranes Moist - Respiratory Exam Respiratory Exam: NORMAL BREATHING PATTERN - GI/Abdominal Exam GI & Abdominal Exam: absent: Distended, Firm, Guarding, Rigid, Tenderness - Rectal Exam Rectal Exam: Deferred - Extremities Exam Extremities Exam: Normal Capillary Refill, Normal Inspection. absent: Calf Tenderness - Neurological Exam Neurological Exam: Alert, Awake, Normal Gait Neuro motor strength exam: Left Upper Extremity: 5, Right Upper Extremity: 4, Left Lower Extremity: 5, Right Lower Extremity: 4 - Psychiatric Exam Psychiatric exam: Normal Affect, Normal Mood - Skin Skin Exam: Intact, Normal Color, Warm Assessment and Plan - Assessment and Plan (Free Text) Assessment: 42M with PMHx of stroke one year ago with R sided weakness (improving), HTN, HLD seen at bedside two days after suffering a stroke with NIHSS of 6. Patient for DEBRA today at [facility] Plan: CVA - Per neurology (Dr. Cabrera), Plavix 75 mg PO daily and Aspirin 81 mg PO daily x 21 days (Day 2), then Plavix monotherapy - Lipitor 40 mg PO daily - Patient on IVF NS @ 75 mL/hr - Head CT -negative - Head/ Neck CTA- negative - Bubble study: Can not r/o ASD or muscular VSD. Consider DEBRA - Cardiology Consult appreciated - Dr. Bateman - Patient for DEBRA today at [facility] - NPO since midnight last night - Per PT, patient stable from their standpoint to be DC home without services Hx of hypertension (currently normotensive) - Normotensive: BP 108/72 - Per neurologist permit hypertension to BP 220/110 - Pt reports taking catapril at home but does not know dose - Continue to monitor BP and treat accordingly, no medication at this time Diet - NPO DVT prophylaxis - SCDs per Neuro
--- NOTE | 2017-08-08 07:03 | CP.PCM.PN ---
Subjective - Date & Time of Evaluation Date of Evaluation: 08/08/17 Time of Evaluation: 07:00 - Subjective Subjective: 42M with PMHx of stroke one year ago with R sided weakness (improving), HTN, HLD seen at bedside three days after suffereing a stroke with NIHSS of 6. Patient is AAO x 3 and NAD at time of examination. Denies any acuter overnight events or new complaints at this time. States that he feels as though his right sided weakness is continuing to improve and denies any right sided tingling or numbness at this time. States that his DEBRA was without complication yesterday. Denies any recent N/V/F/C/CP/SOB/D/posterior calf pain when squeeze/headache/ blurry vision. Objective - Vital Signs/Intake and Output Vital Signs (last 24 hours): Temp Pulse Resp BP Pulse Ox 98.3 F 60 18 106/71 99 08/08/17 05:35 08/08/17 05:35 08/08/17 05:35 08/08/17 05:35 08/08/17 05:35 - Medications Medications: Current Medications Alprazolam (Xanax) 0.5 mg PO ONCE ONE Stop: 08/08/17 06:59 Aspirin (Aspirin Chewable) 81 mg PO DAILY [facility] Last Admin: 08/07/17 16:49 Dose: 81 mg Atorvastatin Calcium (Lipitor) 40 mg PO DAILY [facility] Last Admin: 08/07/17 16:49 Dose: 40 mg Clopidogrel Bisulfate (Plavix) 75 mg PO DAILY [facility] Last Admin: 08/07/17 16:49 Dose: 75 mg - Labs Labs: 08/05/17 12:00 08/05/17 12:00 PT 11.7 Seconds (9.8-13.1) 08/05/17 12:00 INR 1.1 (0.9-1.2) 08/05/17 12:00 APTT 34.0 Seconds (25.6-37.1) 08/05/17 12:00 - Constitutional Appears: Well, Non-toxic, No Acute Distress - Head Exam Head Exam: ATRAUMATIC, NORMOCEPHALIC - Eye Exam Eye Exam: EOMI, PERRL Pupil Exam: PERRL - ENT Exam ENT Exam: Mucous Membranes Moist - Respiratory Exam Respiratory Exam: NORMAL BREATHING PATTERN - Rectal Exam Rectal Exam: Deferred - Back Exam Additional comments: Right sided weakness continues to improve - Neurological Exam Neurological Exam: Alert, Awake, Oriented x3 Neuro motor strength exam: Left Upper Extremity: 5, Right Upper Extremity: 4, Left Lower Extremity: 5, Right Lower Extremity: 4 - Psychiatric Exam Psychiatric exam: Normal Affect, Normal Mood - Skin Skin Exam: Intact, Normal Color, Warm Assessment and Plan - Assessment and Plan (Free Text) Assessment: 42M with PMHx of stroke one year ago with R sided weakness (improving), HTN, HLD seen at bedside three days after suffereing a stroke with NIHSS of 6 Plan: CVA - Neurology Consult appreciated - Dr. Cabrera - Cardiology Consult appreciated - Dr. Bateman - Per neurology, Plavix 75 mg PO daily and Aspirin 81 mg PO daily x 21 days ( Day 3), then Plavix monotherapy - Lipitor 40 mg PO daily - Head CT -negative - Head/ Neck CTA- negative - Bubble study: Can not r/o ASD or muscular VSD. Consider DEBRA - DEBRA: No evidence of a PFO or Septal defects, No intercardiac thrombus - Per PT, patient stable from their standpoint to be DC home without services - Patient brought down for MRI brain, MRA head, MRA neck yesterday but became claustrophobic and agitated during examination - Spoke with patient this morning, will give patient 0.5 mg Xanax prior to studies and will re-attempt imaging today Hx of hypertension (currently normotensive) - Normotensive: BP 106/71 - Per neurologist permit hypertension to BP 220/110 - Pt reports taking catapril at home but does not know dose - Continue to monitor BP and treat accordingly, no medication at this time Diet - Heart Healthy DVT prophylaxis - SCDs per Neuro
--- NOTE | 2017-08-08 09:11 | CP.PCM.PN ---
Subjective - Date & Time of Evaluation Date of Evaluation: 08/08/17 Time of Evaluation: 09:11 - Subjective Subjective: Mr. Medrano was seen and examined at the bedside. 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 He denies any headache, dizziness, lightheadedness, blurred vision, diplopia, nausea, or vomiting. He is able to follow simple commands with right side slightly weaker than the left. He is able to tolerate DEBRA procedure yesterday. He was about to do an MRI , however, he claims of being clautrophobic. There was no untoward events overnight. Objective - Vital Signs/Intake and Output Vital Signs (last 24 hours): Temp Pulse Resp BP Pulse Ox 97.6 F 63 20 119/72 96 08/08/17 08:00 08/08/17 08:00 08/08/17 08:00 08/08/17 08:00 08/08/17 08:00 - Medications Medications: Current Medications Aspirin (Aspirin Chewable) 81 mg PO DAILY [facility] Last Admin: 08/07/17 16:49 Dose: 81 mg Atorvastatin Calcium (Lipitor) 40 mg PO DAILY [facility] Last Admin: 08/07/17 16:49 Dose: 40 mg Clopidogrel Bisulfate (Plavix) 75 mg PO DAILY [facility] Last Admin: 08/07/17 16:49 Dose: 75 mg - Labs Labs: 08/05/17 12:00 08/05/17 12:00 PT 11.7 Seconds (9.8-13.1) 08/05/17 12:00 INR 1.1 (0.9-1.2) 08/05/17 12:00 APTT 34.0 Seconds (25.6-37.1) 08/05/17 12:00 - Constitutional Appears: No Acute Distress - Head Exam Head Exam: NORMAL INSPECTION - Neurological Exam Neurological Exam: Alert, Awake, Oriented x3 Neuro motor strength exam: Left Upper Extremity: 5, Right Upper Extremity: 5, Left Lower Extremity: 5, Right Lower Extremity: 5 Additional comments: Neurological unchanged from previous examination. Assessment and Plan (1) CVA (cerebral vascular accident) Assessment & Plan: Case discussed with Dr. Cabrera, continue all current medical, physical, occupational, and speech therapies. Pending MRI, MRA of the head and MRA of the neck. If MRI of the brain is normal , may discharge to home pending cardiology recommendations. Recommend to follow up with an outpatient neurologist 2 weeks after discharge. Status: Acute
--- NOTE | 2017-08-08 18:35 | MRI ---
PROCEDURE: MR Angiography of the neck without contrast toggle HISTORY: cva COMPARISON: None available. TECHNIQUE: 3D [id number] angiography of the neck was performed. Rotating maximum intensity projection images of the cervical carotid and vertebral arteries were generated. The origins of the common carotid arteries were not visualized, which is a limitation inherent to the non-contrast time of flight technique. FINDINGS: RIGHT CAROTID ARTERIES: Common Carotid Artery: Normal. Carotid Bifurcation: Normal. Internal Carotid Artery:Normal. External Carotid Artery (proximal branches): Normal. LEFT CAROTID ARTERIES: Common Carotid Artery: Normal. Carotid Bifurcation: Normal. Internal Carotid Artery:Normal. External Carotid Artery (proximal branches): Normal. VERTEBRAL ARTERIES: Right Vertebral Artery: Normal. Left Vertebral Artery: Normal. OTHER FINDINGS: None. IMPRESSION: Normal MR Angiography of the neck.
--- NOTE | 2017-08-08 18:38 | MRI ---
PROCEDURE: Magnetic Resonance Angiography Brain HISTORY: cva COMPARISON: None available. TECHNIQUE: 3D time of flight MR angiography of the intracranial arteries was performed. Rotating maximum intensity projection images were generated. FINDINGS: INTERNAL CAROTID ARTERIES: No significant stenosis identified. The skull base, petrous, cavernous and supraclinoid segments are bilaterally widely patient. ANTERIOR CEREBRAL ARTERIES: No significant stenosis identified. A1 and A2 segments are widely patent. Smaller distal branches unremarkable, as visualized. MIDDLE CEREBRAL ARTERIES: No significant stenosis identified. M1 and M2 segments are widely patent. Perisylvian branches grossly symmetric. POSTERIOR CIRCULATION: Basilar Artery: Unremarkable. Distal Vertebral Arteries: Unremarkable. Posterior Cerebral Arteries: Unremarkable. Posterior Inferior Cerebellar Arteries: Unremarkable. ANEURYSM/ VASCULAR MALFORMATIONS: None. OTHER FINDINGS: None. IMPRESSION: Unremarkable MR angiography of the brain.
--- NOTE | 2017-08-08 18:41 | MRI ---
PROCEDURE: MRI BRAIN WITHOUT CONTRAST HISTORY: cva COMPARISON: None. TECHNIQUE: Multiplanar, multisequence MR images of the brain were obtained without intravenous contrast enhancement. FINDINGS: HEMORRHAGE: None DWI: No evidence of an acute or early subacute infarction. BRAIN PARENCHYMA: Intrinsic signal throughout the calderon and white matter structures above below the tentorium includes appears within normal limits including the brainstem. There is no mass effect, parenchymal edema or loss of the corticomedullary differentiation. Midline brain anatomy appears within normal limits including the corpus callosum, brainstem and craniocervical junction. There is no suspicious extra-axial fluid collection identified. VENTRICLES: Unremarkable. No hydrocephalus. CRANIUM: Unremarkable. ORBITS: Grossly unremarkable. PARANASAL SINUSES/MASTOIDS: Clear VASCULAR SYSTEM: Skull base flow voids intact. OTHER FINDINGS: None. IMPRESSION: Unremarkable non contrast enhanced MRI of the brain.
[2017-08-09 08:08] VITALS: RESP 18
--- NOTE | 2017-08-09 12:04 | CP.PCM.DIS ---
Provider - Provider Date of Admission: 08/05/17 14:00 Attending physician: Radha Shukla MD Primary care physician: None Consults: Neurolgy and Cardiology Time Spent in preparation of Discharge (in minutes): 30 Diagnosis - Discharge Diagnosis (1) CVA (cerebral vascular accident) Status: Acute Hospital Course - Lab Results Lab Results: Most Recent Lab Values WBC 8.4 K/uL (4.8-10.8) 08/05/17 12:00 RBC 4.99 Mil/uL (4.40-5.90) 08/05/17 12:00 Hgb 15.8 g/dL (12.0-18.0) 08/05/17 12:00 Hct 45.9 % (35.0-51.0) 08/05/17 12:00 MCV 92.0 fl (80.0-94.0) 08/05/17 12:00 MCH 31.7 pg (27.0-31.0) H 08/05/17 12:00 MCHC 34.5 g/dL (33.0-37.0) 08/05/17 12:00 RDW 12.9 % (11.5-14.5) 08/05/17 12:00 Plt Count 207 K/uL (130-400) 08/05/17 12:00 MPV 9.5 fl (7.2-11.7) 08/05/17 12:00 Neut % (Auto) 62.9 % (50.0-75.0) 08/05/17 12:00 Lymph % (Auto) 28.2 % (20.0-40.0) 08/05/17 12:00 Rankin % (Auto) 7.6 % (0.0-10.0) 08/05/17 12:00 Eos % (Auto) 0.7 % (0.0-4.0) 08/05/17 12:00 Baso % (Auto) 0.6 % (0.0-2.0) 08/05/17 12:00 Neut # (Auto) 5.3 K/uL (1.8-7.0) 08/05/17 12:00 Lymph # (Auto) 2.4 K/uL (1.0-4.3) 08/05/17 12:00 Rankin # (Auto) 0.6 K/uL (0.0-0.8) 08/05/17 12:00 Eos # (Auto) 0.1 K/uL (0.0-0.7) 08/05/17 12:00 Baso # (Auto) 0.1 K/uL (0.0-0.2) 08/05/17 12:00 PT 11.7 Seconds (9.8-13.1) 08/05/17 12:00 INR 1.1 (0.9-1.2) 08/05/17 12:00 APTT 34.0 Seconds (25.6-37.1) 08/05/17 12:00 Sodium 143 mmol/l (132-148) 08/05/17 12:00 Potassium 4.2 MMOL/L (3.6-5.0) 08/05/17 12:00 Chloride 103 mmol/L (98-107) 08/05/17 12:00 Carbon Dioxide 27 mmol/L (22-30) 08/05/17 12:00 Anion Gap 17 (10-20) 08/05/17 12:00 BUN 16 mg/dl (9-20) 08/05/17 12:00 Creatinine 0.9 mg/dl (0.8-1.5) 08/05/17 12:00 Est GFR ( Amer) > 60 08/05/17 12:00 Est GFR (Non-Af Amer) > 60 08/05/17 12:00 Random Glucose 96 mg/dL (75-110) 08/05/17 12:00 Hemoglobin A1c 5.5 % (4.2-6.5) 08/05/17 12:00 Calcium 9.5 mg/dL (8.4-10.2) 08/05/17 12:00 Total Bilirubin 0.7 mg/dl (0.2-1.3) 08/05/17 12:00 AST 27 U/L (17-59) 08/05/17 12:00 ALT 41 U/L (21-72) 08/05/17 12:00 Alkaline Phosphatase 73 U/L (38-126) 08/05/17 12:00 Troponin I < 0.0120 ng/mL (0.00-0.120) 08/05/17 12:00 Total Protein 7.3 G/DL (6.3-8.2) 08/05/17 12:00 Albumin 4.1 g/dL (3.5-5.0) 08/05/17 12:00 Globulin 3.2 gm/dL (2.2-3.9) 08/05/17 12:00 Albumin/Globulin Ratio 1.3 (1.0-2.1) 08/05/17 12:00 Triglycerides 85 mg/DL (0-149) 08/05/17 12:00 Cholesterol 193 mg/dL (0-199) 08/05/17 12:00 LDL Cholesterol Direct 121 mg/dL (0-129) 08/05/17 12:00 HDL Cholesterol 46 MG/DL (30-70) 08/05/17 12:00 Vitamin B12 294 pg/mL (239-931) 08/05/17 12:00 25-OH Vitamin D Total 19.2 NG/ML (30.0-100.0) L 08/05/17 16:30 Folate 10.1 ng/mL 08/05/17 12:00 TSH 3rd Generation 1.35 mIU/ML (0.46-4.68) 08/05/17 12:00 HIV 1&2 Antibody Screen Negative (NEGATIVE) 08/06/17 11:53 Blood Type O POSITIVE 08/05/17 12:00 Blood Type Confirm O POSITIVE 08/05/17 12:10 Antibody Screen Negative 08/05/17 12:00 BBK History Checked No verified bt 08/05/17 12:00 - Hospital Course Hospital Course: Pt was admitted as code stroke for repeat CVA, last CVA was a year ago, pt was seen by neurology, cardiology and physical therapy. MRI and MRA negative, pt did well with pt and is back to baseline. had a DEBRA done by cardiology that was negative. Spoke with Dr. Cotter by phone at 11:54am today who states because pt does not have any cardiac history and DEBRA is negative pt can be discharged. pt has also been cleared by neurologist. pt is being is discharged home and with instructions about establishing care at the [facility] for follow up and other health maintenance Discharge Exam - Head Exam Head Exam: ATRAUMATIC, NORMOCEPHALIC - Eye Exam Eye Exam: Normal appearance, PERRL Pupil Exam: NORMAL ACCOMODATION - ENT Exam ENT Exam: Mucous Membranes Moist - Respiratory Exam Respiratory Exam: Clear to PA & Lateral, NORMAL BREATHING PATTERN - Cardiovascular Exam Cardiovascular Exam: REGULAR RHYTHM, +S1, +S2 - GI/Abdominal Exam GI & Abdominal Exam: Normal Bowel Sounds, Soft - Extremities Exam Extremities exam: full ROM, normal inspection - Neurological Exam Neurological exam: Alert, CN II-XII Intact, Oriented x3, Reflexes Normal Discharge Plan - Discharge Medications Prescriptions: Aspirin [Aspirin Chewable] 81 mg PO DAILY #14 chew Atorvastatin [Lipitor] 40 mg PO DAILY #30 tab Clopidogrel [Plavix] 75 mg PO DAILY #30 tab - Follow Up Plan Condition: GUARDED Disposition: HOME/ ROUTINE Instructions: Heart Healthy Diet, Stroke (DC) Additional Instructions: Please note you will be contacted at the telephone number on file with an appointment to establish primary care the [facility]. If you do not hear from Nellie Chand by 08/12/17. Please call the number [phone] to schedule an appointment for follow up on your hospital discharge. Please take medications as prescribed as well Referrals: [facility] [Outside] Cade Cabrera MD [Medical Doctor] - Maurice Bateman MD [Staff Provider] -
[2017-08-09 12:10] VITALS: BP 115/77; PULSE 76; TEMP 98; O2SAT 97
--- NOTE | 2017-08-09 15:07 | PN ---
DATE: SUBJECTIVE: The patient denies any chest pain, dizziness, headache or shortness of breath. PHYSICAL EXAMINATION: VITAL SIGNS: Blood pressure , heart rate 76, temperature 98 and respirations 18. HEENT: Normocephalic. CHEST: Clear. HEART: S1 and S2 regular. EXTREMITIES: No edema. ASSESSMENT: Questionable cerebrovascular accident. No evidence of any atrial or ventricular septal defect. RECOMMENDATIONS: The patient can be discharged from the cardiac point of view on his current medications, which include aspirin, Lipitor, and Plavix. Maurice Bateman MD
== END 2017-08-09 13:30 | disposition home or self-care (01) | DRG 65 ==
LOC: H.ER 10:08 → H.ERHOLD 14:00 → H.TEL 18:19
PROVIDERS: ADMIT Family Medicine Geriatric Medicine; ATTEND Family Medicine Geriatric Medicine
PROC: B246ZZ4 Ultrasonography of Right and Left Heart, Transesophageal (ICD-10-PCS; principal; 2017-08-07)
DX: I63.8 Other cerebral infarction (principal); G81.91 Hemiplegia, unspecified affecting right dominant side; R47.1 Dysarthria and anarthria; I10 Essential (primary) hypertension; E78.5 Hyperlipidemia, unspecified; R29.706 NIHSS score 6; Z79.82 Long term (current) use of aspirin; Z88.0 Allergy status to penicillin